=== PATIENT | female | born 1945 | race Two or more races ===

== ENCOUNTER 2020-08-01 07:23 | Emergency (ER) | payer OTHER ==
[~2020-08-01] VITALS: Ht 157.5 cm; Wt 63.5 kg
[2020-08-01] MEDS ORDERED: cloNIDine HCL 0.1 MG TAB ONE ×2 (07:58→08:00)
[2020-08-01] MEDS ORDERED: cloNIDine HCL 0.1 MG TAB PO ONE (08:15)
[2020-08-01 10:38] VITALS: BP 110/66
== END 2020-08-01 10:44 | disposition home or self-care (01) ==
LOC: ER 07:23
DX: I10 Essential (primary) hypertension (principal); R51.9 Headache, unspecified; W18.39XA Other fall on same level, initial encounter; Y93.89 Activity, other specified; Y92.89 Other specified places as the place of occurrence of the external cause; Y99.8 Other external cause status
CPT/HCPCS: 70450; 93005